=== PATIENT | male | born 1965 ===

== ENCOUNTER → 2021-09-12 | Day surgery (SDC) | payer OTHER ==
[~2021-09-12] MED LIST: COZAAR100 MG PO
== END | disposition home or self-care (01) ==
LOC: ADM 09-08 08:15 → CIR.AMB 06:00
PROVIDERS: ATTEND Orthopaedic Surgery Hand Surgery
DX: M77.02 Medial epicondylitis, left elbow (principal); I10 Essential (primary) hypertension; G43.909 Migraine, unspecified, not intractable, without status migrainosus